=== PATIENT | female | born 1975 | race Caucasian/White ===

== ENCOUNTER → 2016-09-26 | Outpatient (CLI) | payer BC ==
--- NOTE | 2016-09-26 16:07 | RAD ---
DATE: 09/26/2016 EXAM: DIGITAL SCREEN BILAT W/CAD HISTORY: Routine screening COMPARISON: 08/18/2015 This study was interpreted with the benefit of Computerized Aided Detection (CAD). FINDINGS: The breast parenchyma demonstrates heterogeneously dense breast tissue, category C. There are no dominant suspicious masses, suspicious microcalcifications or evidence of architectural distortion. IMPRESSION: Benign findings BI-RADS CATEGORY: 1 NEGATIVE RECOMMENDED FOLLOW-UP: 12M 12 MONTH FOLLOW-UP PQRS compliance statement: Patient information was entered into a reminder system with a target due date 09/26/2017 for the next mammogram. Mammography is a sensitive method for finding small breast cancers, but it does not detect them all and is not a substitute for careful clinical examination. A negative mammogram does not negate a clinically suspicious finding and should not result in delay in biopsying a clinically suspicious abnormality. "Our facility is accredited by the [employer] Mammography Program."
== END | disposition home or self-care (01) ==
LOC: MAMMO 10:36
PROVIDERS: ATTEND Obstetrics & Gynecology
DX: Z12.31 Encounter for screening mammogram for malignant neoplasm of breast (principal)
CPT/HCPCS: G0202; 77067

== ENCOUNTER → 2017-09-27 | Outpatient (CLI) | payer BC | END | disposition home or self-care (01) | LOC: KCIC MAMMO 09:13 | DX: R92.2 Inconclusive mammogram (principal) | CPT/HCPCS: 76641; 77066 ==